=== PATIENT | female | born 1975 | race Caucasian/White ===

== ENCOUNTER 2021-07-06 21:25 | Inpatient (IN) | payer OTHER ==
[~2021-07-06] VITALS: Ht 170.2 cm; Wt 102.0 kg
[2021-07-07] MEDS ORDERED: ENTRESTO 24 MG1 EACH PO (02:21)
[2021-07-07] MEDS ORDERED: PRAZOSIN HCL1 MG PO (02:21)
[2021-07-07] MEDS ORDERED: ISOSORBIDE MONO30 MG PO (02:24)
[2021-07-07] MEDS ORDERED: LEVOCETIRIZINE D5 MG PO (02:25)
[2021-07-07] MEDS ORDERED: ABILIFY10 MG PO (02:25)
[2021-07-07] MEDS ORDERED: METOPROLOL TAR100 MG PO (02:26)
[2021-07-07] MEDS ORDERED: QUETIAPINE FUM100 MG PO (02:26)
[2021-07-07] MEDS ORDERED: AMLODIPINE BESY10 MG PO (02:27)
[2021-07-07] MEDS ORDERED: METFORMIN HCL1000 MG PO (02:27)
[2021-07-07] MEDS ORDERED: GABAPENTIN800 MG PO (02:28)
[2021-07-07] MEDS ORDERED: ATORVASTATIN CA80 MG PO (02:28)
[2021-07-07] MEDS ORDERED: INSULIN AS100 UNIT/5 SQ (02:30)
[2021-07-07] MEDS ORDERED: OMEGA 3 1,0001 EACH PO (02:31)
[2021-07-07] MEDS ORDERED: ASPIRIN CHEWABL81 MG PO (02:31)
[2021-07-07] MEDS ORDERED: INSULIN GL100 UNIT/1 SQ (02:31)
[2021-07-07] MEDS ORDERED: NEXIUM40 MG PO (02:33)
[2021-07-07] MEDS ORDERED: AMITRIPTYLINE H50 MG PO (02:33)
[2021-07-07] MEDS ORDERED: DRISDOL1250 MCG PO (02:35)
[2021-07-07] MEDS ORDERED: NITROGLYCERIN0.4 MG SL (02:36)
[2021-07-07] MEDS ORDERED: NITROSTAT0.3 MG SL (02:36)
[2021-07-07] MEDS ORDERED: TIZANIDINE HCL4 MG PO (02:37)
[2021-07-07 03:05] LABS: HEMOGLOBIN 7.4 gm/dl (12.3-15.3); RED BLOOD COUNT 2.51 M/UL (4.00-5.10); WHITE BLOOD COUNT 12.3 K/UL (4.5-11.0)
[2021-07-08 08:44] LABS: RED BLOOD COUNT 1.99 M/UL (4.00-5.10); WHITE BLOOD COUNT 7.8 K/UL (4.5-11.0)
[2021-07-08 08:48] LABS: HEMOGLOBIN 5.8 gm/dl (12.3-15.3)
[2021-07-08 16:46] LABS: HEMOGLOBIN 7.3 gm/dl (12.3-15.3)
[2021-07-09 05:33] LABS: HEMOGLOBIN 8.7 gm/dl (12.3-15.3)
[2021-07-09 05:36] LABS: RED BLOOD COUNT 3.42 M/UL (4.00-5.10); WHITE BLOOD COUNT 4.5 K/UL (4.5-11.0)
[2021-07-09 08:13] LABS: HBSAG SCREEN Negative (Negative); HEP B CORE AB, TOT Negative (Negative); HEP C VIRUS AB <0.1 (0.0-0.9)
[2021-07-09 09:13] LABS: ANTISTREPTOLYSIN O AB 75.2 IU/mL (0.0-200.0); COMPLEMENT C3, SERUM 155 mg/dL (82-167); COMPLEMENT C4, SERUM 32 mg/dL (12-38)
[2021-07-10 06:54] LABS: HEMOGLOBIN 7.2 gm/dl (12.3-15.3)
[2021-07-10 07:01] LABS: RED BLOOD COUNT 2.65 M/UL (4.00-5.10); WHITE BLOOD COUNT 8.2 K/UL (4.5-11.0)
[2021-07-11 07:51] LABS: RED BLOOD COUNT 2.52 M/UL (4.00-5.10); WHITE BLOOD COUNT 7.9 K/UL (4.5-11.0)
[2021-07-11] MEDS ORDERED: GABAPENTIN300 MG PO (11:52)
[2021-07-11] MEDS ORDERED: FUROSEMIDE40 MG PO (11:52)
[2021-07-11 14:11] LABS: HEMOGLOBIN 7.3 gm/dl (12.3-15.3)
[2021-07-11 14:11] LABS: ANTI-DSDNA ANTIBODIES 1 IU/mL (0-9)
[2021-07-11 15:11] LABS: A/G RATIO 0.7 (0.7-1.7); ALPHA-1-GLOBULIN 0.3 g/dL (0.0-0.4); ALPHA-2-GLOBULIN 1.2 g/dL (0.4-1.0); BETA GLOBULIN 1.1 g/dL (0.7-1.3); GAMMA GLOBULIN 0.7 g/dL (0.4-1.8); GLOBULIN, TOTAL 3.3 g/dL (2.2-3.9); IMMUNOGLOBULIN A, QN, SERUM 398 mg/dL (87-352); IMMUNOGLOBULIN G, QN, SERUM 818 mg/dL (586-1602); IMMUNOGLOBULIN M, QN, SERUM 51 mg/dL (26-217); M-SPIKE Not Observed g/dL (Not Observed); PROTEIN, TOTAL, SERUM 5.3 g/dL (6.0-8.5)
[2021-07-11 17:11] LABS: ATYPICAL PANCA <1:20 titer (Neg:<1:20); CYTOPLASMIC (C-ANCA) <1:20 titer (Neg:<1:20); PERINUCLEAR (P-ANCA) <1:20 titer (Neg:<1:20)
[2021-07-11] MEDS ORDERED: PERCOCET 10-321 EACH PO (17:42)
[2021-07-11] MEDS ORDERED: FERROUS SULFAT325 M2 PO (17:42)
[2021-07-12 07:12] LABS: CREATININE, URINE 47.7 mg/dL (Not Estab.)
[2021-07-12 07:14] LABS: HEMOGLOBIN 7.4 gm/dl (12.3-15.3); RED BLOOD COUNT 2.6 M/UL (4.00-5.10)
[2021-07-12 07:23] LABS: WHITE BLOOD COUNT 9.2 K/UL (4.5-11.0)
== END 2021-07-12 12:48 | disposition home or self-care (01) | DRG 280 ==
LOC: CCU 21:25 → MED SURG 4 07-07 01:40
PROVIDERS: Internal Medicine; Internal Medicine Cardiovascular Disease; Internal Medicine Nephrology; Internal Medicine Pulmonary Disease; ADMIT Internal Medicine
PROC: B24BZZZ Ultrasonography of Heart with Aorta (ICD-10-PCS; 2021-07-07)
PROC: 30233N1 Transfusion of Nonautologous Red Blood Cells into Peripheral Vein, Percutaneous Approach (ICD-10-PCS; principal; 2021-07-08)
DX: I13.0 Hypertensive heart and chronic kidney disease with heart failure and stage 1 through stage 4 chronic kidney disease, or unspecified chronic kidney disease (principal); E11.10 Type 2 diabetes mellitus with ketoacidosis without coma; I21.A1 Myocardial infarction type 2; Z20.822 Contact with and (suspected) exposure to COVID-19; I50.33 Acute on chronic diastolic (congestive) heart failure; J96.21 Acute and chronic respiratory failure with hypoxia; N17.9 Acute kidney failure, unspecified; E11.40 Type 2 diabetes mellitus with diabetic neuropathy, unspecified; E78.1 Pure hyperglyceridemia; J44.9 Chronic obstructive pulmonary disease, unspecified; L89.620 Pressure ulcer of left heel, unstageable; L89.610 Pressure ulcer of right heel, unstageable; F17.210 Nicotine dependence, cigarettes, uncomplicated; D63.1 Anemia in chronic kidney disease; G47.33 Obstructive sleep apnea (adult) (pediatric); E66.01 Morbid (severe) obesity due to excess calories; D50.9 Iron deficiency anemia, unspecified; I27.20 Pulmonary hypertension, unspecified; N18.30 Chronic kidney disease, stage 3 unspecified; G89.4 Chronic pain syndrome; I42.0 Dilated cardiomyopathy; L89.152 Pressure ulcer of sacral region, stage 2; Z79.4 Long term (current) use of insulin; Z79.82 Long term (current) use of aspirin; Z98.51 Tubal ligation status; Z83.3 Family history of diabetes mellitus; Z82.49 Family history of ischemic heart disease and other diseases of the circulatory system; Z91.14 Patient's other noncompliance with medication regimen; Z90.49 Acquired absence of other specified parts of digestive tract; Z74.01 Bed confinement status
CPT/HCPCS: ECHO; 36415; 36430; 36600; 71045; 80048; 80053; 80307; 81001; 82043; 82270; 82550; 82553; 82570; 82607; 82728; 82746; 82784; 82803; 82962; 83036; 83520; 83540; 83550; 83735; 83883; 84100; 84133; 84155; 84156; 84165; 84300; 84484; 85014; 85018; 85025; 85027; 85045; 85652; 85730; 86038; 86060; 86140; 86160; 86162; 86225; 86256; 86334; 86704; 86706; 86708; 86803; 86850; 86900; 86901; 86920; 87040; 87340; 89050; 93005; 93306; 94660; 94760; A6212; C9113; J0696; J1642; J1644; J1756; J1940; J2270; P9016